=== PATIENT | female | born 1970 | race Hispanic/Latino ===

== ENCOUNTER 2017-11-25 09:46 | Outpatient (CLI) | payer SELFPAY ==
--- NOTE | 2017-11-29 15:48 | MMO ---
BILATERAL SCREENING MAMMOGRAM: DATE: 11/25/17 HISTORY: 47-year-old female for screening mammography. COMPARISON: 11/02/16, 10/21/15, 01/16/15. FINDINGS: Bilateral MLO and CC views of the breasts show scattered fibroglandular breast tissue. There is focal ly asymmetric breast tissue in the upper outer aspect of the left breast which remain stable. There i s no evidence of suspicious mass, suspicious cluster of microcalcifications, or area of architectural distortion. Interpretation of this mammogram was performed with the assistance of computer-aided detection. IMPRESSION: BIRADS 2: Benign Finding(s) Annual screening mammography is recommended. POS: [facility]
== END 2017-11-25 09:47 | disposition home or self-care (01) ==
LOC: SCSMAMMO 09:46
PROVIDERS: ATTEND Family Medicine
DX: Z12.31 Encounter for screening mammogram for malignant neoplasm of breast (principal)
CPT/HCPCS: 77067